=== PATIENT | female | born 1960 | race Caucasian/White ===

== ENCOUNTER 2018-06-23 08:59 | Emergency (ER) | payer BC, OTHER ==
--- NOTE | 2018-06-23 09:39 | RAD REPORT ---
EXAM DESCRIPTION: CT - Head Brain Wo Cont - 06/23/2018 9:30 am CLINICAL HISTORY: Syncope COMPARISON: None. TECHNIQUE: Axial 5 mm thick images of the head were obtained without IV contrast. All CT scans are performed using dose optimization technique as appropriate and may include automated exposure control or mA/KV adjustment according to patient size. FINDINGS: No intracranial hemorrhage, mass, edema or shift of mid-line structures. No acute infarcti on changes seen. No abnormal extra-axial fluid collections. Ventricles are normal. Mastoid air cells and visualized portions of the paranasal sinuses are clear. No acute bony findings. IMPRESSION: Negative non-contrast CT head examination.
--- NOTE | 2018-06-23 09:54 | RAD REPORT ---
EXAM DESCRIPTION: RAD - Chest Pa And Lat (2 Views) - 06/23/2018 9:41 am CLINICAL HISTORY: Syncope, current treatment for pneumonia COMPARISON: None. TECHNIQUE: PA and lateral views of the chest were obtained. FINDINGS: The lungs are normal volume. No dense consolidation seen. There is a minimal oval opacific ation lower right lung field that may be atelectasis or possibly remnant of the historically stated p neumonia. No failure or volume overload. Heart size is normal and central vasculature is within nor mal limits. No pleural effusion or pneumothorax seen. No acute bony finding noted. No aortic abnor mality. IMPRESSION: No large mass, consolidation or failure finding. Minimal right lower lung field opacification is atelectasis or possibly remnant of the historically s tated pneumonia.
[2018-06-23 10:01] LABS: Absolute Lymphocytes (CBC) 0.7 K/uL (0.7-4.9); Absolute Monocytes 0.7 K/uL (0.1-1.3); Absolute Neutrophil 12.3 K/uL (1.8-8.0); Basophils % 0.2 % (0-1.3); Eosinophils % 0.8 % (0-4.4); Hematocrit 42.1 % (36.0-45.0); MCV 87.4 fL (80-100); MPV 8.5 fL (7.6-11.3); Monocytes % 5.2 % (3.3-12.3); RBC Red Blood Cell Count 4.82 M/uL (3.86-4.86)
[2018-06-23] MEDS ORDERED: LEVALBUTEROL 1.25 MG/3 ML NEB ONE (10:02)
[2018-06-23] MEDS ORDERED: NA CHLORIDE 0.9% 1,000 ML ONE ×2 (10:02→12:40)
[2018-06-23 10:20] LABS: Blood Morphology Comment NOT SEEN (NOT SEEN); Platelet Estimate ADEQ; Toxic Granulation 1+; Urine White Blood Cell Casts OK
[2018-06-23 10:25] LABS: Potassium 4.4 mmol/L (3.5-5.1)
--- NOTE | 2018-06-23 11:28 | EKG ---
Test Date: 2018-06-23 Test Time: 09:55:50 Coding Specialist: GERARDO MEASUREMENT RESULTS: Intervals: Rate: 56 NC: 148 QRSD: 88 QT: 452 QTc: 436 [place]: P: 49 NC: 148 QRS: 5 T: 45 INTERPRETIVE STATEMENTS: Sinus bradycardia Nonspecific ST and T wave abnormality Abnormal ECG No previous ECG available for comparison Electronically Signed On 06-23-18 11:27:29 SOCK MENDER by Aurelio Burroughs
--- NOTE | 2018-06-23 13:56 | ER ---
Nurse's Notes [facility] Name: Jaelyn Zurita Age: 57 yrs Sex: Female : 1960 Arrival Date: 06/23/2018 Time: 09:06 Bed 17 Private MD: Diagnosis: Syncope and collapse;Dehydration Presentation: 06/23 08:58 Presenting complaint: EMS states: Pt. is A \T\ O x 4. Was walking to the couch when she rb1 got dizzy and had a syncope episode. The dizziness is intermittent. Currently being treated for pneumonia and is on her second round of antibiotics. 18 G R AC, administered Zofran 4 mg x 1 IVP, and NS 350 ml bolus. BGL 142. Denies pain. Transition of care: patient was not received from another setting of care. Onset of symptoms was June 23, 2018 at 08:15. Risk Assessment: Do you want to hurt yourself or someone else? Patient reports no desire to harm self or others. Initial Sepsis Screen: Does the patient meet any 2 criteria? No. Patient's initial sepsis screen is negative. Does the patient have a suspected source of infection? No. Patient's initial sepsis screen is negative. Care prior to arrival: Medication(s) given: zofran 4 mg. 08:58 Method Of Arrival: EMS: [place] [id number] 08:58 Acuity: DESIRAE 3 rb1 Triage Assessment: 08:58 General: Appears in no apparent distress. comfortable, Behavior is calm, cooperative, rb1 Denies fever. Pain: Denies pain. Neuro: Reports dizziness, Intermittent. Neuro: Manager Pmo are equal bilaterally Moves all extremities. Gait is steady, Speech is normal, Facial symmetry appears normal, Pupils are PERRLA. Cardiovascular: Capillary refill < 3 seconds is brisk in bilateral fingers. Respiratory: Reports cough that is non-productive, Airway is patent Respiratory effort is even, unlabored, Respiratory pattern is regular, symmetrical. GI: No signs and/or symptoms were reported involving the gastrointestinal system. : No signs and/or symptoms were reported regarding the genitourinary system. Derm: Skin is pink, warm \T\ dry. Musculoskeletal: Range of motion: intact in all extremities. Historical: - Allergies: 09:20 No Known Allergies; rb1 - Home Meds: 09:20 Ventolin Rotahaler/Rotacaps Inhl [Active]; azithromycin 250 mg Oral tab 1 tab once rb1 daily [Active]; uezpqnamvwripnr-nkuoyilll-DH 2-30-10 mg/5 mL oral syrp 10 mL every 4 hours [Active]; NAC 600 mg oral cap [Active]; benzonatate 200 mg oral cap 1 cap 3 times per day [Active]; - PMHx: 09:20 Pneumonia; rb1 - Immunization history:: Adult Immunizations up to date. - Family history:: not pertinent. - Ebola Screening: : Patient negative for fever greater than or equal to 101.5 degrees Fahrenheit, and additional compatible Ebola Virus Disease symptoms. - Social history:: Smoking status: Patient/guardian denies using tobacco. - Hospitalizations: : No recent hospitalization is reported. Screenin:58 Abuse screen: Denies threats or abuse. Nutritional screening: No deficits noted. rb1 Tuberculosis screening: No symptoms or risk factors identified. Fall Risk Fall in past 12 months (25 points). No secondary diagnosis (0 pts). IV access (20 points). Ambulatory Aid- None/Bed Rest/Nurse Assist (0 pts). Gait- Normal/Bed Rest/Wheelchair (0 pts) Mental Status- Oriented to own ability (0 pts). Total Borden Fall Scale indicates High Risk Score (45 or more points). Fall prevention measures have been instituted. Side Rails Up X 2 Placed Close to Nursing Station 1:1 Attendant Assigned Frequent Obs/Assessments Occuring Family Present and informed to notify staff if the need to leave the bedside As available patient and family educated on Fall Prevention Program and Strategies. Assessment: 08:58 General: See triage assessment. rb1 08:58 Cardiovascular: Rhythm is regular. rb1 09:55 Reassessment: Patient appears in no apparent distress at this time. No changes from rb1 previously documented assessment. 10:55 Reassessment: Patient appears in no apparent distress at this time. Patient and/or rb1 family updated on plan of care and expected duration. Pain level reassessed. Patient is alert, oriented x 3, equal unlabored respirations, skin warm/dry/pink. 11:55 Reassessment: Patient appears in no apparent distress at this time. No changes from rb1 previously documented assessment. Patient states feeling better. 12:42 Reassessment: Patient appears in no apparent distress at this time. Patient and/or rb1 family updated on plan of care and expected duration. Pain level reassessed. Patient is alert, oriented x 3, equal unlabored respirations, skin warm/dry/pink. 13:30 Reassessment: Patient appears in no apparent distress at this time. No changes from rb1 previously documented assessment. at bedside. 14:20 Reassessment: Patient appears in no apparent distress at this time. Patient and/or rb1 family updated on plan of care and expected duration. Pain level reassessed. Patient is alert, oriented x 3, equal unlabored respirations, skin warm/dry/pink. Patient states feeling better. Vital Signs: 08:58 BP 129 / 75; Pulse 63; Resp 17; Temp 97.7(O); Pulse Ox 97% on R/A; Weight 86.18 kg (R); rb1 Height 5 ft. 7 in. (170.18 cm) (R); Pain 0/10; 09:58 BP 120 / 83; Pulse 61; Resp 18; Pulse Ox 95% on R/A; dh3 11:08 BP 123 / 83; Pulse 82; Resp 16; Pulse Ox 95% on R/A; dh3 12:08 BP 113 / 69; Pulse 74; Resp 16; Pulse Ox 97% on R/A; rb1 13:00 BP 112 / 70; Pulse 69; Resp 13; Pulse Ox 95% on R/A; rb1 13:30 BP 113 / 70; Pulse 73; Resp 14; Pulse Ox 96% on R/A; rb1 14:24 BP 107 / 72; Pulse 69; Resp 20; Pulse Ox 97% on R/A; rb1 08:58 Body Mass Index 29.76 (86.18 kg, 170.18 cm) rb1 ED Course: 08:58 Arm band placed on right wrist. rb1 08:58 Patient has correct armband on for positive identification. Placed in gown. Bed in low rb1 position. Call light in reach. Side rails up X 1. Pulse ox on. NIBP on. 08:58 Maintain EMS IV. Dressing intact. Good blood return noted. Site clean \T\ dry. Gauge \T\ rb 1 site: 18 G R AC. 09:06 Patient arrived in ED. iw 09:13 John Gutierrez MD is Attending Physician. rn 09:13 Veena Blackwell, DONALDO is Primary Nurse. rb1 09:18 Triage completed. rb1 09:[address] vr 09:27 CT completed. Patient tolerated procedure well. Patient moved back from CT. vr 09:30 CT Head Brain wo Cont In Process Unspecified. EDMS 09:39 X-ray completed. Patient tolerated procedure well. Patient moved back from radiology. jb2 09:41 XRAY Chest Pa And Lat (2 Views) In Process Unspecified. EDMS 09:50 Initial lab(s) drawn, by id, sent to lab. dh3 09:51 CT completed. Patient tolerated procedure well. Patient moved to CT via stretcher. vr 09:59 EKG done, by traffic survey technician. reviewed by John Gutierrez MD. dt2 14:22 No provider procedures requiring assistance completed. IV discontinued, intact, rb1 bleeding controlled, No redness/swelling at site. Pressure dressing applied. Administered Medications: 09:55 Drug: NS 0.9% 1000 ml Route: IV; Rate: 1000 ml; Site: right antecubital; rb1 11:00 Follow up: IV Status: Completed infusion rb1 09:55 Drug: Xopenex 1.25 mg Route: Inhalation; rb1 12:37 Drug: NS 0.9% 1000 ml Route: IV; Rate: 1000 ml; Site: right antecubital; rb1 13:43 Follow up: IV Status: Completed infusion rb1 Outcome: 13:55 Discharge ordered by . rn 14:22 Patient left the ED. rb1 14:22 Discharged to home via wheelchair, with family. rb1 14:22 Condition: stable 14:22 Discharge instructions given to patient, Instructed on discharge instructions, follow up and referral plans. medication usage, Demonstrated understanding of instructions, follow-up care, medications, Prescriptions given X 1. Signatures: Dispatcher [employer] EDMS Aditya Melgar jb2 Xenia Li, John Patricia RN, MD MD rn Davis, Victoria vr Veena Blackwell RN RN rb1 Rosalind Mix 3 Dahiana Fernandez dt2 Corrections: (The following items were deleted from the chart) 11:15 11:08 Pulse 82bpm; Resp 16bpm; Pulse Ox 95% RA; 3 3
--- NOTE | 2018-06-23 13:56 | EDPHYS ---
Physician Documentation [facility] Name: Jaelyn Zurita Age: 57 yrs Sex: Female : 1960 Arrival Date: 06/23/2018 Time: 09:06 Bed 17 Private MD: ED Physician John Gutierrez HPI: 06/23 09:20 This 57 yrs old Female presents to ER via EMS with complaints of Syncope. rn 09:20 The patient has experienced syncope. Onset: The symptoms/episode began/occurred just rn prior to arrival. Duration: This was a single episode. Associated signs and symptoms: Pertinent positives: lightheadedness, weakness. Associated signs and symptoms: Pertinent negatives: chest pain, confusion, diaphoresis, palpitations, seizure, vertigo. The patient has not experienced similar symptoms in the past. Reports passed out prior to arrival, is on 2nd course of abx for cough, told had pneumonia, but hasn't gotten better, today still felt sick, made her way down stairs, felt lightheaded and weak, called for , tried to make it to couch then passed out, no trauma. Denies preceding chest pain/headache/focal neurological problem.. Historical: - Allergies: 09:20 No Known Allergies; rb1 - Home Meds: 09:20 Ventolin Rotahaler/Rotacaps Inhl [Active]; azithromycin 250 mg Oral tab 1 tab once rb1 daily [Active]; jzhnnsbuoyertzm-sxuijvwkt-WR 2-30-10 mg/5 mL oral syrp 10 mL every 4 hours [Active]; NAC 600 mg oral cap [Active]; benzonatate 200 mg oral cap 1 cap 3 times per day [Active]; - PMHx: 09:20 Pneumonia; rb1 - Immunization history:: Adult Immunizations up to date. - Family history:: not pertinent. - Ebola Screening: : Patient negative for fever greater than or equal to 101.5 degrees Fahrenheit, and additional compatible Ebola Virus Disease symptoms. - Social history:: Smoking status: Patient/guardian denies using tobacco. - Hospitalizations: : No recent hospitalization is reported. ROS: 09:20 Constitutional: Negative for fever, chills, and weight loss, Eyes: Negative for injury, rn pain, redness, and discharge, Neck: Negative for injury, pain, and swelling, Cardiovascular: Negative for chest pain, palpitations, and edema, Respiratory: Negative for pleuritic chest pain, Abdomen/GI: Negative for abdominal pain, nausea, vomiting, diarrhea, and constipation, MS/Extremity: Negative for injury and deformity, Skin: Negative for injury, rash, and discoloration, Neuro: Negative for headache, numbness, tingling, and seizure. Exam: 09:20 Constitutional: This is a well developed, well nourished patient who is awake, alert, rn and in no acute distress. Head/Face: Normocephalic, atraumatic. Eyes: Pupils equal round and reactive to light, extra-ocular motions intact. Lids and lashes normal. Conjunctiva and sclera are non-icteric and not injected. Cornea within normal limits. Periorbital areas with no swelling, redness, or edema. ENT: dry MM, no stridor Cardiovascular: Regular rate and rhythm, No pulse deficits. Respiratory: Lungs have equal breath sounds bilaterally, clear to auscultation. No increased work of breathing, no retractions or nasal flaring. Mild wheezing and cough with deep inspiration. Abdomen/GI: soft, non-tender MS/ Extremity: Pulses equal, no cyanosis. Neurovascular intact. Full, normal range of motion. Equal circumference. Neuro: Awake and alert, GCS 15, oriented to person, place, time, and situation. Cranial nerves II-XII grossly intact. Motor strength 5/5 in all extremities. Sensory grossly intact. Cerebellar exam normal. Vital Signs: 08:58 BP 129 / 75; Pulse 63; Resp 17; Temp 97.7(O); Pulse Ox 97% on R/A; Weight 86.18 kg (R); rb1 Height 5 ft. 7 in. (170.18 cm) (R); Pain 0/10; 09:58 BP 120 / 83; Pulse 61; Resp 18; Pulse Ox 95% on R/A; dh3 11:08 BP 123 / 83; Pulse 82; Resp 16; Pulse Ox 95% on R/A; dh3 12:08 BP 113 / 69; Pulse 74; Resp 16; Pulse Ox 97% on R/A; rb1 13:00 BP 112 / 70; Pulse 69; Resp 13; Pulse Ox 95% on R/A; rb1 13:30 BP 113 / 70; Pulse 73; Resp 14; Pulse Ox 96% on R/A; rb1 14:24 BP 107 / 72; Pulse 69; Resp 20; Pulse Ox 97% on R/A; rb1 08:58 Body Mass Index 29.76 (86.18 kg, 170.18 cm) rb1 MDM: 09:13 Patient medically screened. rn 11:57 ED course: Pt states feels better, no longer wants MRI for dizziness despite me rn recommending it, she would like another bag of fluids and reassess.. 13:54 Differential Diagnosis: idiopathic syncope, vasovagal episode, dehydration, volume rn depletion. Data reviewed: vital signs, nurses notes, lab test result(s), EKG, radiologic studies, and as a result, I will discharge patient. Counseling: I had a detailed discussion with the patient and/or guardian regarding: the historical points, exam findings, and any diagnostic results supporting the discharge/admit diagnosis, lab results, radiology results, the need for outpatient follow up, to return to the emergency department if symptoms worsen or persist or if there are any questions or concerns that arise at home. Response to treatment: the patient's symptoms have markedly improved after treatment, the patient's condition has returned to base line, and as a result, I will discharge patient. Special discussion: I discussed with the patient/guardian in detail that at this point there is no indication for admission to the hospital. It is understood, however, that if the symptoms persist or worsen the patient needs to return immediately for re-evaluation. 06/23 09:14 Order name: CBC with Diff; Complete Time: 10:24 rn 06/23 09:14 Order name: Basic Metabolic Panel; Complete Time: 10:29 rn 06/23 09:14 Order name: XRAY Chest Pa And Lat (2 Views); Complete Time: 10:01 rn 06/23 09:14 Order name: CT Head Brain wo Cont; Complete Time: 10:01 rn 06/23 10:04 Order name: CBC Smear Scan; Complete Time: 10:24 EDMS 06/23 09:14 Order name: IV Start; Complete Time: 09:51 rn 12 09:14 Order name: EKG; Complete Time: 09:14 rn 06/23 09:14 Order name: EKG - Nurse/Tech; Complete Time: 10:02 rn Administered Medications: 09:55 Drug: NS 0.9% 1000 ml Route: IV; Rate: 1000 ml; Site: right antecubital; rb1 11:00 Follow up: IV Status: Completed infusion rb1 09:55 Drug: Xopenex 1.25 mg Route: Inhalation; rb1 12:37 Drug: NS 0.9% 1000 ml Route: IV; Rate: 1000 ml; Site: right antecubital; rb1 13:43 Follow up: IV Status: Completed infusion rb1 Disposition: 06/23/18 13:55 Discharged to Home. Impression: Syncope and collapse, Dehydration. - Condition is Stable. - Discharge Instructions: Dehydration, Adult, Syncope. - Prescriptions for Zofran ODT 4 mg Oral tablet,disintegrating - place 1 tablet by TRANSLINGUAL route every 8-10 hours As needed; 20 tablet. - Medication Reconciliation Form, Thank You Letter, Antibiotic Education, Prescription Opioid Use form. - Follow up: Private Physician; When: As needed; Reason: Recheck today's complaints, Re-evaluation by your physician. - Problem is new. - Symptoms have improved. Signatures: Dispatcher [employer] [facility] John Gutierrez MD MD rn Barber, Rebecca, RN RN rb1 Corrections: (The following items were deleted from the chart) 13:40 11:25 Brain Wo Cont+MRI.RAD.BRZ ordered. [facility] EDNC 14:22 13:55 06/23/2018 13:55 Discharged to Home. Impression: Syncope and collapse; rb1 Dehydration. Condition is Stable. Forms are Medication Reconciliation Form, Thank You Letter, Antibiotic Education, Prescription Opioid Use. Follow up: Private Physician; When: As needed; Reason: Recheck today's complaints, Re-evaluation by your physician. Problem is new. Symptoms have improved. rn
== END 2018-06-23 14:22 | disposition home or self-care (01) ==
LOC: ER 08:59
DX: E86.0 Dehydration (principal)
CPT/HCPCS: 36415; 70450; 71046; 80048; 85025; 93005; 96360; 96361; 99285; J7030